=== PATIENT | female | born 1950 | race Asian ===

== ENCOUNTER 2025-02-24 09:27 | Outpatient (AMB) | payer MEDICARE, SELFPAY ==
[2025-02-24 09:39] VITALS: BP 160/80; PULSE 62; RESP 16; TEMP 36.3; O2SAT 99; BMI 24.1
--- NOTE | 2025-02-24 09:39 | PD.RESCLINIC ---
Vital Signs 02/24/25 09:39 Height 1.45 m Height Method Stated Weight 50.576 kg Weight Measurement Method Standing Scale BMI 24.1 BP 160/80 H Blood Pressure Source Automatic Cuff Blood Pressure Location Left Upper Arm Position Sitting Respiration 16 Pulse 62 Pulse Source Monitor Temp 97.3 F Temp Source Temporal Artery Scan Pulse Oximetry (%) 99 Oxygen Delivery Method Room Air Allergies/Meds Allergies & Medications Allergies No Known Allergies Allergy (Verified 02/24/25 09:40) Medication Reconciliation famotidine 20 mg tablet 20 mg PO QDAY #30 tabs 09/13/24 [Rx Confirmed 02/24/25] atorvastatin 40 mg tablet 40 mg PO QPM cholesterol #30 tabs 02/24/25 [Rx] clopidogrel 75 mg tablet 75 mg PO QDAY #30 tabs 02/24/25 [Rx] lisinopril 20 mg tablet 20 mg PO QDAY #30 tabs 02/24/25 [Rx] MA Intake Visit Data Collection New Patient or Established: Established Patient (seen at [facility] within 3 years) Seen by Clinical Staff ONLY (RN/MA): No Pain Present Currently: No Pain scale:: 0 Pain Scale Used: 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: No PCP or OBGYN visit in last 3 months: Yes Hx Now: No Do You Feel Safe at Home: Yes Authorities Contacted: N/A Smoking Status Smoking Status: Never smoker Immunization / Flu Flu Vaccine in the Last 12 Months: No Flu Vaccine Exclusion Criteria: No Exclusion Criteria Past Medical History Past Medical History NEUROLOGIC: Positive Cerebrovascular Accident (08/14/24?) CARDIAC: Positive Hypertension; Negative Congestive Heart Failure RESPIRATORY: Negative Chronic Obstructive Pulmonary Disease (COPD) GENITOURINARY: Negative Renal Disease ENDOCRINE: Negative Diabetes Mellitus Type 1 or Diabetes Mellitus Type 2 PSYCHO/SOCIAL: Positive Anxiety (Resent, new onset, family loss, no meds) OTHER HISTORY: Negative Falls Family History FAMILY HISTORY: Positive Family Cardiac Disorders (Brother has HTN) Social History SMOKING STATUS: Smoking status: Never smoker ALCOHOL: Alcohol Intake: Never HOUSING: Housing: House LIVES WITH: Lives With: Children and Family Patient Portal Questionaires Social History Living Situation History Housing: House Housing Other:: Pt lives with son Tobacco History Smoking Status: Never smoker Alcohol History Alcohol Intake: Never Domestic Abuse History Do You Feel Safe at Home: Yes Review of Systems Report any current symptoms Only answer those that you have currently: Past Medical History Past Medical History Have you ever been diagnosed with any of the following: Neurological Problems Cerebrovascular Accident (CVA): Yes (08/14/24?) Cardiology Problems Congestive Heart Failure: No Hypertension: Yes Respiratory Problems Chronic Obstructive Pulmonary Disease (COPD): No Genital/Urinary Problems Renal Disease: No Endocrine Problems Diabetes Mellitus Type 1: No Diabetes Mellitus Type 2: No Psychologic Problems Anxiety: Yes (Resent, new onset, family loss, no meds) Other Problems Falls: No History of Present Illness HPI Narrative 09/13/2024: Ryder Hogue is a 74 yr female with PMH of HTN, HLD, and recent CVA now on aspirin and plavix who is presenting to clinic today for a follow up. Patient's daughter was present during visit to assist with translation. Daughter stated that she has no complaints and family has not noticed any new weakness, slurred speech, falls, or confusion. Patient is undergoing PT at home with improved walking with assistance of cane/walker. Denies any dysphasia, loss of appetite, or palpitations. Patient is compliant with medications and regularly checks BP at home ranging from systolic 120-130s mmHg. 02/24/2025: The patient is here for regular follow up. She presented with her son who helped with translation. She had last episode of stroke on October 2024 when she went to [place]. She reported having no new weakness. She admitted unable to take her atorvastatin as it makes her weak. She denied any headache,chest pain, SOB, abdominal pain, any changes in bowel or bladder habit, fever or chills, or any nausea or vomiting. Her BP has been in the range of 120-130/70-80 at home, but this morning she hasn't taken her medicines and her BP is 160/80. Review of Systems Review of Systems Systems Reviewed: All systems reviewed, normal except as documented Objective/Exam Narrative Physical exam: General: No acute distress, Alert and Oriented x 3 HEENT: Moist mucous membranes, oropharynx clear Neck: Supple, No masses, No JVD CVS: S1S2 Regular rate and rhythm, No murmurs, rubs or gallops Lungs: Clear to auscultation with no accessory use, no wheeze no rhonchi Abd: Soft, NT/ND, +BS, no organomegaly Ext: No edema, warm and well perfused Skin: No rash Psych: Appropriate mood and affect Assessment & Plan Diagnosis / Problem List (1) History of CVA (cerebrovascular accident): Status: Acute Assessment & Plan: The patient had 3 episodes of stroke, on August 2024, October 2024 and October 2024. She presented to [facility] on August 2024, and was taken to [place] on October 2024. She has been continuing on DAPT, atorvastatin 40 Mg and lisinopril 20 Mg daily. However, studies suggest that DAPT should be taken for maximum 90 days, followed by single agent antiplatelet therapy. Plan: -Continue on clopidogrel 75 Mg -Stopped aspirin 81 Mg daily, as guidelines suggest DAPT only for maximum 90 days -Continue with lisinopril 20 Mg daily -Continue with atorvastatin 40 Mg daily -Follow-up with neurologist Dr. Tobias within 1 week for further assessment of need for neuro-intervention, for M1 branch of Rt and Lt. MCA . -Follow-up in 3 months -Ordered CBC, CMP, lipid panel and UA (2) Hypertension: Status: Acute Qualifiers: Hypertension type: primary hypertension Qualified Code(s): I10 - Essential (primary) hypertension Assessment & Plan: Patient has history of primary hypertension which is well controlled. Home medication includes lisinopril 20 mg daily. Patient states that she checks BP at home regularly and has normal readings with systolic 120-130s mmHg. however, her blood pressure was 160/80, as she forgot to take her Lasix this morning Plan: -Continue with lisinopril 20 Mg daily Continue to monitor BP with recordings. Return to clinic for any necessary adjustment if readings not within range. Orders: Orders Urinalysis Today I10 - Essential (primary) hypertension CBC Today Z86.73 - Personal history of transient ischemic attack (TIA), and cerebral infarction without residual deficits Comprehensive Metabolic Panel Today Z86.73 - Personal history of transient ischemic attack (TIA), and cerebral infarction without residual deficits Lipid Panel Today Z86.73 - Personal history of transient ischemic attack (TIA), and cerebral infarction without residual deficits Additional Assessment The patient's management plan was discussed with my attending physician MD Jaspal Marie MD, PGY2 Advanced Care Planning Advance care planning discussed with:: child Office Procedures [facility] Level of Care Nursing/Assessment Patient Status: Established Patient Nursing Assessment/Reassessment: Medication Reconciliation, Update PMH in EMR and Vital Signs Coordination of Care: Complex Care and Chronic Disease 1-5, Consent,records obtained, informed consent, Education Simp Pt/Fam and Staff clarify orders Established Patient Charge Established Patient Point Assignment: 85 Established Patient Point Charge: EP Level 3 (80-115)
== END 2025-02-24 10:29 | disposition home or self-care (01) ==
LOC: HODAHC 09:27
PROVIDERS: Supervising Provider Internal Medicine; Visit Provider Student in an Organized Health Care Education/Training Program
DX: Z09 Encounter for follow-up examination after completed treatment for conditions other than malignant neoplasm (principal); Z86.73 Personal history of transient ischemic attack (TIA), and cerebral infarction without residual deficits; I10 Essential (primary) hypertension
CPT/HCPCS: 99213; G0463

== ENCOUNTER → 2025-02-24 | Outpatient (CLI) | payer MEDICARE, MEDICAID, SELFPAY ==
[2025-02-24 11:40] LABS: Collection Type, Urine Clean Catch
[2025-02-24 11:48] LABS: Basophils % (Auto) 1 % (0-2.5); Eosinophils # (Auto) 0.1 Thou/mm3 (0.0-0.5); Eosinophils % (Auto) 1 % (0-10); Hemoglobin 12.1 g/dL (12.0-16.0); Immature Granulocytes % (Auto) 0 % (0-0); Immature Granulocytes Auto 0.01 Thou/mm3 (0.00-0.00); Lymphocytes # (Auto) 2.2 Thou/mm3 (1.0-4.8); Lymphocytes % (Auto) 42 % (10-50); Mean Corpuscular HGB Conc 33.6 g/dl (31.0-37.0); Mean Corpuscular Hemoglobin 26.5 pg (25.0-35.0); Mean Corpuscular Volume 79 fL (80-100); Monocytes # (Auto) 0.4 Thou/mm3 (0.0-0.8); Monocytes % (Auto) 7 % (0-12); Neutrophils # (Auto) 2.6 Thou/mm3 (1.8-7.7); Neutrophils % (Auto) 50 % (37-80); Nucleated Red Blood Cell % 0 /100 WBC (0); Platelet Count 217 Thou/mm3 (140-440); RDW Standard Deviation 36.9 fL (36.4-46.3); Red Blood Count 4.57 Miln/mm3 (4.00-5.20); White Blood Count 5.2 Thou/mm3 (3.6-11.0)
[2025-02-24 11:50] LABS: Alanine Aminotransferase 14 U/L (10-49); Albumin, Serum 4.3 gm/dL (3.4-4.8); Albumin/Globulin Ratio 1.5 (1.2-2.2); Alkaline Phosphatase 59 U/L (46-116); Anion Gap 8 (7-16); Aspartate Amino Transferase 16 U/L (0-34); BUN/Creatinine Ratio 13 Ratio (12-20); Bilirubin,Total 1.3 mg/dL (0.3-1.2); Blood Urea Nitrogen 13 mg/dL (9-23); Calcium 9.2 mg/dL (8.3-10.6); Calcium (Corrected) 9.2 mg/dL (8.5-10.1); Carbon Dioxide 26.8 mMol/L (20.0-31.0); Cardiac Risk Estimate 4.1 RATIO (3.7-5.6); Chloride 107 mMol/L (98-107); Cholesterol 168 mg/dL (132-200); Globulin 2.9 gm/dL (2.3-3.5); Glucose 97 mg/dL (74-106); HDL Cholesterol 41 mg/dL (40-60); LDL Cholesterol,Calculated 89 mg/dL (0-130); Osmolality,Calculated 283 (275-295); Potassium 4.5 mMol/L (3.4-5.1); Sodium 142 mMol/L (136-145); Total Protein 7.2 gm/dL (5.7-8.2); Triglycerides 191 mg/dL (30-150); eGFR 59 See Note
[2025-02-24 12:24] LABS: Bilirubin,Urine Negative (Negative); Blood,Urine Negative (Negative); Clarity,Urine Clear (Clear/Hazy); Color,Urine Colorless (Lt Yel-Yel); Glucose, Urine Negative (Negative); Ketones,Urine Negative (Negative); Leukocyte Esterase,Urine Negative (Negative); Nitrite,Urine Negative (Negative); Protein,Urine Negative (Neg - Trace); RBC,Urine 1 /hpf (0-3); Squamous Epithelial Cell,Urine < 1 /hpf (0-5); Urobilinogen,Urine Negative mg/dL (0.0-1.0); WBC,Urine < 1 /hpf (0-5)
== END | disposition home or self-care (01) ==
PROVIDERS: PCP Student in an Organized Health Care Education/Training Program; Referring Provider Student in an Organized Health Care Education/Training Program; Visit Provider Student in an Organized Health Care Education/Training Program
DX: I10 Essential (primary) hypertension (principal); Z86.73 Personal history of transient ischemic attack (TIA), and cerebral infarction without residual deficits
CPT/HCPCS: 36415; 80053; 80061; 81001; 85025